=== PATIENT | female | born 1945 | race Caucasian/White ===

== ENCOUNTER → 2017-01-24 | Outpatient (CLI) | payer OTHER, MEDICARE | LOC: FIMAGING 09:16 | PROVIDERS: ATTEND Internal Medicine | DX: K76.0 Fatty (change of) liver, not elsewhere classified (principal) ==

== ENCOUNTER → 2019-02-22 | Outpatient (CLI) | payer OTHER, MEDICARE | LOC: FIMAGING 12:42 | PROVIDERS: ATTEND Internal Medicine Pulmonary Disease | DX: R06.09 Other forms of dyspnea (principal); J96.11 Chronic respiratory failure with hypoxia; G47.33 Obstructive sleep apnea (adult) (pediatric); E66.9 Obesity, unspecified; Z99.89 Dependence on other enabling machines and devices ==